=== PATIENT | female | born 1985 | race Caucasian/White ===

== ENCOUNTER → 2018-05-17 | Outpatient (CLI) | payer BC ==
[~2018-05-17] MED LIST: CARI350T28 PO; DOCU100C31 PO; HYDR-3419 PO; ONDA4TAB54 PO; SENN-61 PO
== END | disposition home or self-care (01) ==
LOC: C.RDSM 13:11
PROVIDERS: ATTEND Orthopaedic Surgery
DX: T14.8XXA Other injury of unspecified body region, initial encounter (principal); X58.XXXA Exposure to other specified factors, initial encounter

== ENCOUNTER → 2018-05-17 | Outpatient (CLI) | payer BC ==
[~2018-05-17] VITALS: Ht 157.5 cm; Wt 52.7 kg
[2018-05-17 15:33] VITALS: Ht 157.5 cm; Wt 52.7 kg
--- NOTE | 2018-05-17 15:53 | PAT Medication Instructions ---
Service Date May 17, 2018. Current Home Medication List Carisoprodol (Soma), 350 MG PO HS Docusate Sodium (Docusate Sodium), 1 CAP PO BID Hydrocodon/Acetaminophen 5MG/300MG (Vicodin (5MG/300MG)), 1 TAB PO Q4H PRN for Pain Ondansetron (Ondansetron HCl), 1 TAB PO UD PRN for prn Senna (Senokot), Unknown Dose PO QAM Medication Instructions For Your Scheduled Surgery - Hold the following medications the morning of surgery: Docusate Sodium (Docusate Sodium), 1 CAP PO BID Senna (Senokot), Unknown Dose PO QAM - Take the following medications the morning of surgery with a sip of water: Hydrocodon/Acetaminophen 5MG/300MG (Vicodin (5MG/300MG)), 1 TAB PO Q4H PRN for Pain (okay to take up to 4 hours prior to surgery if needed) Ondansetron (Ondansetron HCl), 1 TAB PO UD PRN for prn (if needed) - Take the following medications as scheduled the night before surgery: Carisoprodol (Soma), 350 MG PO HS Docusate Sodium (Docusate Sodium), 1 CAP PO BID Hydrocodon/Acetaminophen 5MG/300MG (Vicodin (5MG/300MG)), 1 TAB PO Q4H PRN for Pain (if needed) Ondansetron (Ondansetron HCl), 1 TAB PO UD PRN for prn (if needed) If you have any questions please call us at [phone] or [phone] or [phone]
[2018-05-17 16:39] LABS: BASO % 0.4 %; BASO ABS # 0.03 K/uL (0-0.2); EOS % 1.6 %; EOS ABS # 0.13 K/uL (0-0.5); HEMATOCRIT 32.7 % (37-47); HEMOGLOBIN 11.4 g/dL (12.0-16.0); IG# 0.01 K/uL (0.00-0.02); LYMPH % 31.1 %; LYMPH ABS # 2.59 K/uL (1.2-3.4); MEAN CELL VOLUME 88.9 fL (80-100); MEAN CORPUSCULAR HGB CONC 34.9 g/dl (32-36); MEAN PLATELET VOLUME 12.3 fL (7.4-10.4); MONO % 3.5 %; MONO ABS # 0.29 K/uL (0.11-0.59); NEUT % 63.3 %; NEUT ABS # 5.28 K/uL (1.4-6.5); PLATELET COUNT 184 K/uL (130-400); RED CELL DISTRIBUTION WIDTH SD 38.7 fL (36.4-46.3); WHITE BLOOD COUNT 8.33 K/uL (4.8-10.8)
--- NOTE | 2018-05-30 12:22 | CODING QUERY NO DIAGNOSIS ---
TREATMENT RENDERED WITHOUT A DIAGNOSIS To promote full compliance with coding requirements relating to patient care, physician participation is requested in all cases of analysis intern uncertainty. Please assist us with providing a diagnosis/symptom for the test(s) below: A diagnosis/symptom was not documented on your Order. A valid diagnosis/symptom is required to bill all insurances. Please remember that we are unable to code a diagnosis of rule out, probable, possible, questionable, or suspected. Tests that require a diagnosis: DOS: 05/17/18 CBC w/ diff DIAGNOSIS: Provider Signature: Date: Thank you Heidi [facility] Once completed, please kindly fax back to [phone] For questions please call [phone]
== END | disposition home or self-care (01) ==
LOC: C.LAB 08:00 → EDSTATUS 05-20 12:00 → C.PAT 05-20 12:18
PROVIDERS: ATTEND Orthopaedic Surgery
DX: Z01.812 Encounter for preprocedural laboratory examination (principal); S42.002A Fracture of unspecified part of left clavicle, initial encounter for closed fracture; X58.XXXA Exposure to other specified factors, initial encounter